=== PATIENT | male | born 1995 | race Caucasian/White ===

== ENCOUNTER 2020-03-27 20:05 | Emergency (ER) | payer SELFPAY ==
--- NOTE | ~2020-03-27 | US_ITS ---
US scrotum doppler INDICATION: Right testicular pain for 2 days TECHNIQUE: Testicular sonogram utilizing grayscale and color Doppler FINDINGS: The testes are normal in size and appearance. No focal lesions are seen. The right testes measures 4.8 x 3.5 x 2.9 cm centimeters, and the left testis measures 4.7 x 3.1 x 2.6 cm cm. There is normal vascular flow to both testes. The right epididymis is prominent, heterogeneous with increased vascularity. There is an 8 mm left ep ididymal cysts. Small hydroceles. IMPRESSION: 1. Asymmetrically enlarged heterogeneous right epididymis with increased vascularity, consistent wit h epididymitis. 2: Small hydroceles. Reviewed, dictated and finalized at location A. TRAVEL COUNSELOR IMPRESSION: 1. Asymmetrically enlarged heterogeneous right epididymis with increased vascu larity, consistent with epididymitis. 2: Small hydroceles.
--- NOTE | 2020-03-27 20:09 | ED.ABDPAIN ---
HPI - Abdominal Pain General Chief Complaint: Urogenital-Male Stated Complaint: right malik pain Time Seen by Provider: 03/27/20 20:09 Source: patient and family Mode of arrival: ambulatory Limitations: no limitations History of Present Illness HPI narrative: Patient is a 24-year-old male who presents for evaluation of right testicular pain. Pain has been present over the past 10 hours, worsening over the course of the day. Patient states he did awaken with the pain this morning. He reports pain that is dull, aching, worse with movement in his right testicle which radiates into his right groin. He reports some swollen lymph nodes in his right groin. He denies penile pain, discharge or history of sexually transmitted infection. He denies any painful urination, dribbling urination, hesitancy, frequency or hematuria. He denies any back pain. Patient is sexually active with one partner. He denies any fever, chest pain, cough or shortness of breath. Last oral intake was 3 hours prior to arrival. Related Data Allergies Allergy/AdvReac Type Severity Reaction Status Date / Time No Known Allergies Allergy Verified 04/21/18 07:26 Review of Systems Review of Systems: Narrative: CONSTITUTIONAL: Denies fever, chills, or sweats. EYES: Denies visual changes, redness, or discharge. ENT: Denies rhinorrhea, congestion, sore throat, or otalgia. CARDIOVASCULAR: Denies chest pain, palpitations, or edema. RESPIRATORY: Denies cough or dyspnea. GASTROINTESTINAL: Denies abdominal pain, nausea, vomiting, or diarrhea. GENITOURINARY: Denies dysuria or hematuria. Reports right testicular pain and swelling. SKIN: Denies rash or itching. MUSCULOSKELETAL: Denies back pain, joint pain, or myalgia. NEUROLOGIC: Denies headache, numbness, or weakness. [facility] Past Medical History Medical History (Updated 03/27/20 @ 21:25 by Ching Nichols MD) No pertinent past medical history Surgical History Surgical History (Updated 03/27/20 @ 20:20 by Ching Nichols MD) History of tonsillectomy Social History Social History Gender identity (if verbalized by the patient): Male Exam Narrative: Exam Narrative: GENERAL: Awake, alert, conversant, mildly uncomfortable appearing HEAD: Normocephalic, atraumatic. EYES: PERRLA and EOMI. ENT: Nares clear, no rhinorrhea or epistaxis. Mucous membranes moist. NECK: Supple. CHEST: No respiratory distress, breathing even and non labored HEART: Regular rate, sinus rhythm ABDOMEN:Non distended, non tender : Penis is circumcised. Glans unremarkable. No discharge or lesions. Left testes is unremarkable, nontender, no erythema. Patient does have right testicular erythema, edema and tenderness. He does have bilateral cremasteric reflex. There is right-sided inguinal lymphadenopathy, mobile lymph nodes which are tender to palpation. No inguinal lymphadenopathy on the left. No discharge from the urethra. EXTREMITIES: Normal range of motion. No edema. SKIN: Warm, dry, no rash. NEURO:No focal deficits. Alert and oriented x3 Course Vital Signs Vital signs: Vital Signs Temperature 36.4 C 03/27/20 20:11 Pulse Rate 82 03/27/20 20:11 Respiratory Rate 14 03/27/20 20:11 Blood Pressure 154/90 H 03/27/20 20:11 Pulse Oximetry 99 03/27/20 20:11 Temperature 36.4 C 03/27/20 20:11 Pulse Rate 82 03/27/20 20:11 Respiratory Rate 14 03/27/20 20:11 Blood Pressure 154/90 H 03/27/20 20:11 Pulse Oximetry 99 03/27/20 20:11 MDM - Abdominal Pain MDM Narrative Medical decision making narrative: Patient presented for evaluation of gradually worsening right testicular pain and swelling. The time of assessment, my clinical suspicion for testicular torsion is low given bilateral cremasteric reflex. There is right edema, erythema and tenderness of the right testicle with associated lymphadenopathy which seems more consistent with epididymitis. Laboratory results show mild leukocytosis. No electrolyte
[2020-03-27 20:11] VITALS: BP 154/90; PULSE 82; RESP 14; TEMP 36.4; O2SAT 99
[2020-03-27] MEDS: ONDANSETRON INJ 4 MG/2 ML VIAL IV PUSH (20:24)
[2020-03-27] MEDS: SODIUM CHLORIDE 0.9% IV 1,000 ML 999 ML IV CONT (20:24)
[2020-03-27] MEDS: MORPHINE SULFATE (*CRX) 4 MG/ML INJ IV PUSH (20:24)
[2020-03-27 21:11] LABS: Basophils Percent Auto 0.3 % (0.2-1.2); Eosinophils Absolute Auto 0.1 K/mm3 (0-0.3); Eosinophils Percent Auto 0.7 % (0-4.4); Hematocrit 41.3 % (42.0-52.0); Hemoglobin 14.6 g/dL (14.0-18.0); Immature Granulocyte Absolute 0.04 K/mm3 (0.00-0.031); Immature Granulocyte Percent A 0.4 % (0-0.5); Lymphocytes Absolute Auto 1.29 K/mm3 (0.9-3.2); Mean Corpuscular HGB Conc 35.4 g/dl (32-36); Mean Corpuscular Hemoglobin 30.8 pg (26-34); Mean Corpuscular Volume 87.1 fl (80-100); Mean Platelet Volume 10.2 fl (7.4-10.4); Monocytes Absolute Auto 0.8 K/mm3 (0.1-0.6); Monocytes Percent Auto 7.8 % (2.6-8.5); Neutrophils Absolute Auto 8.4 K/mm3 (1.3-6.7); Neutrophils Percent Auto 78.8 % (45.5-73.1); Platelet Count Result 255 k/mm3 (150-375); Red Blood Count 4.74 M/mm3 (4.6-6.20); White Blood Count 10.7 K/mm3 (4.5-10.0)
[2020-03-27 21:23] LABS: Alanine Aminotransferase 15 U/L (4-50); Albumin Level 4.6 g/dL (3.5-5.1); Alkaline Phosphatase 58 U/L (38-126); Anion Gap 7 mmol/L (8-16); Aspartate Amino Transferase 26 U/L (17-59); Bilirubin,Total 0.4 mg/dL (0.2-1.3); Blood Urea Nitrogen 16 mg/dL (9-20); Calcium 9.5 mg/dL (8.4-10.2); Carbon Dioxide 29 mmol/L (22-30); Chloride 101 mmol/L (98-107); Estimated CRCL calculation 75 ml/min; Estimated Glomerular Filt Rate > 60; Glucose 127 mg/dL (75-110); Potassium 3.5 mmol/L (3.4-5.0); Sodium 137 mmol/L (137-145)
[2020-03-27 21:27] LABS: Add Urine Microscopic? NO; Appearance Urine Clear (Clear); Bilirubin Urine Negative (Negative); Blood Urine Negative (Negative); Color Urine Straw (Yellow); Glucose Urine UA Negative (Negative); Ketones Urine Negative (Negative); Leukocyte Esterase Ur Negative LEU/UL (Negative); Nitrate Urine Negative (Negative); Protein Urine Negative (Negative); Urobilinogen Urine Negative mg/dL (<2.0); WBC Urine 0-3 /hpf
[2020-03-27] MEDS: cefTRIAXone 250 MG VIAL 500 MG IM (21:54)
[2020-03-27] MEDS: DOXYCYCLINE HYCLATE 100 MG TABLET PO (21:55)
[2020-03-27] MEDS: KETOROLAC 15 MG/ML VIAL (*BKC) IV PUSH (21:55)
[2020-03-27 22:10] VITALS: BP 137/68; PULSE 78; RESP 18; O2SAT 99
== END 2020-03-27 22:10 | disposition home or self-care (01) ==
PROVIDERS: Emergency Provider Emergency Medicine
DX: N45.1 Epididymitis (principal)
CPT/HCPCS: 36415; 76870; 80053; 81003; 85025; 87491; 87591; 93976; 96361; 96365; 96372; 96375; 99284; A9270; J0131; J0696; J1885; J2270; J2405; J7030

== ENCOUNTER 2020-04-26 14:59 | Emergency (ER) | payer SELFPAY ==
--- NOTE | ~2020-04-26 | XR_ITS ---
EXAMINATION: XR knee LT min 4V DATE: 04/26/2020 15:31 INDICATION: Left thigh foreign body. TECHNIQUE: 4 views of left knee were obtained. COMPARISON: None. FINDINGS: Bone alignment is normal. No fracture. Joint spaces are well maintained. There is no knee j oint effusion. There is a nail in the soft tissues of the medial distal thigh. IMPRESSION: 1. Nail in the soft tissues of the medial distal thigh. Reviewed, dictated and finalized at location B. NG DEPARTMENT HEAD
[2020-04-26] MEDS: diazePAM (*CRX) 5 MG TABLET PO (15:29)
[2020-04-26] MEDS: TETANUS,DIPHTHERIA,AC PERTUSSIS ADULT (0.5 ML) BOOSTRIX IM (15:30)
[2020-04-26 15:33] VITALS: BP 132/74; PULSE 70; RESP 16; TEMP 37.1; O2SAT 97
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
[2020-04-26 16:52] VITALS: BP 138/88; PULSE 79; RESP 16; O2SAT 100
== END 2020-04-26 16:53 | disposition home or self-care (01) ==
PROVIDERS: Emergency Provider Emergency Medicine
DX: S71.142A Puncture wound with foreign body, left thigh, initial encounter (principal); F17.200 Nicotine dependence, unspecified, uncomplicated; W29.4XXA Contact with nail gun, initial encounter; Z23 Encounter for immunization
CPT/HCPCS: 73564; 90471; 90715; 99283; A9270

== ENCOUNTER 2020-06-09 12:16 | Emergency (ER) | payer SELFPAY ==
--- NOTE | 2020-06-09 12:17 | ED.GENADULT ---
HPI - General Adult General Chief complaint: Dental/Oral Stated complaint: Dental Pain Time Seen by Provider: 06/09/20 12:17 Source: patient Mode of arrival: ambulatory Limitations: no limitations History of Present Illness HPI narrative: 25-year-old male patient presents to the [facility] with complaints of right lower dental pain x2 days patient states he woke up this morning and the pain is worse and now having swelling to the left lower jaw area. Patient states he has had dental abscesses before in the past. Patient states he has been taking Tylenol for pain. Denies any fevers, body aches or chills. Related Data Allergies Allergy/AdvReac Type Severity Reaction Status Date / Time doxycycline AdvReac Nausea and Verified 06/09/20 12:52 Vomiting Review of Systems Review of Systems: Narrative: CONSTITUTIONAL: Denies fever, chills, or sweats. EYES: Denies visual changes, redness, or discharge. ENT: Denies rhinorrhea, congestion, sore throat, or otalgia. Positive dental pain to right lower gum x2 days CARDIOVASCULAR: Denies chest pain, palpitations, or edema. RESPIRATORY: Denies cough or dyspnea. GASTROINTESTINAL: Denies abdominal pain, nausea, vomiting, or diarrhea. GENITOURINARY: Denies dysuria or hematuria. SKIN: Denies rash or itching. MUSCULOSKELETAL: Denies back pain, joint pain, or myalgia. NEUROLOGIC: Denies headache, numbness, or weakness. PSYCHIATRIC: Denies anxiety or depression. PMFSH Past Medical History Medical History (Updated 06/09/20 @ 13:03 by ANISA Slater) Abscessed tooth ADHD Eustachian tube dysfunction Ear tubes No pertinent past medical history Surgical History Surgical History (Updated 06/09/20 @ 12:19 by ANISA Slater) History of orthopedic surgery CHIN History of tonsillectomy Social History Social History Smoking status: Current every day smoker Gender identity (if verbalized by the patient): Male Comments At the time of my signature I agree with nursing past medical history, surgical, social, and family history. There is no relevant family history pertinent to the presenting complaint. Exam Narrative: Exam Narrative: GENERAL: Well-appearing, well-nourished, and in no acute distress. HEAD: Normocephalic, atraumatic. EYES: PERRLA and EOMI. ENT: Nares clear, no rhinorrhea or epistaxis. Mucous membranes moist. Patient has an obvious abscess noted to the right lower oral cavity along the gumline of the back molars. There is surrounding erythema but no active discharge at this time. NECK: Supple. No lymphadenopathy CHEST: Clear to auscultation. No respiratory distress. HEART: Regular rate and rhythm. No murmur heard. Normal peripheral pulses. ABDOMEN: Soft, nontender, nondistended, normal active bowel sounds. EXTREMITIES: Normal range of motion. No edema. SKIN: Warm, dry, no rash. NEURO: No focal deficits. Alert and oriented x3. Course Reevaluation(s) Reevaluation #1: Discussed with patient that there was some pus currently expressed from the abscess. Discussed with patient that he needs to keep the area clean with warm salt water gargles and I will discharge him home with an antibiotic. Discussed with him he can continue taking Tylenol and ibuprofen as needed for pain. Patient verbalized understanding denies any other questions or concerns at this time. Date: 06/09/20 Time: 13:07 Vital Signs Vital signs: Vital Signs Temperature 36.4 C L 06/09/20 12:30 Pulse Rate 86 06/09/20 12:30 Respiratory Rate 18 06/09/20 12:30 Blood Pressure 140/81 06/09/20 12:30 Pulse Oximetry 100 06/09/20 12:30 Temperature 36.4 C L 06/09/20 12:30 Pulse Rate 86 06/09/20 12:30 Respiratory Rate 18 06/09/20 12:30 Blood Pressure 140/81 06/09/20 12:30 Pulse Oximetry 100 06/09/20 12:30 Vital signs reviewed The patient has been informed that they may have pre-hypertension or Hypertension based o
[2020-06-09 12:30] VITALS: BP 140/81; PULSE 86; RESP 18; TEMP 36.4; O2SAT 100
== END 2020-06-09 13:08 | disposition home or self-care (01) ==
PROVIDERS: Emergency Provider Nurse Practitioner Family
DX: K04.7 Periapical abscess without sinus (principal); F17.200 Nicotine dependence, unspecified, uncomplicated
CPT/HCPCS: 41800; 99213; G0463

== ENCOUNTER 2020-11-10 14:07 | Emergency (ER) | payer SELFPAY ==
[2020-11-10 14:09] VITALS: BP 143/82; PULSE 101; RESP 18; TEMP 38.6; O2SAT 100
[2020-11-10 14:46] VITALS: BP 138/97; PULSE 97; RESP 18; TEMP 38.4; O2SAT 97
[2020-11-10 15:20] LABS: Monoscreen Negative (Negative); Negative Monotest Control Negative (Negative); Positive Monotest Control Positive (Positive)
--- NOTE | 2020-11-10 15:29 | ED.URI ---
HPI - URI/Sore Throat General Chief Complaint: Allergic Reaction Stated Complaint: ALLERGIC REACTION POST YELLOW JACKET BITE Time Seen by Provider: 11/10/20 14:24 Source: patient Mode of arrival: ambulatory Limitations: no limitations History of Present Illness HPI Narrative: 25-year-old male Basically healthy Fever and sore throat for 2 days Coincidentally 3 days ago got stung by a yellow jacket on his porch when he let his dog out to go to the bathroom but all that local reaction is resolved No cough or other symptoms Related Data Home Medications Medication Instructions Recorded Confirmed No Home Medications 11/10/20 11/10/20 Allergies Allergy/AdvReac Type Severity Reaction Status Date / Time doxycycline AdvReac Nausea and Verified 11/10/20 14:08 Vomiting Review of Systems Review of Systems: All systems reviewed & are unremarkable except as noted in HPI and below Constitutional: Constitutional: Reports no additional constitutional complaints, Denies chills, Reports fever(s) and Denies headache(s) Eyes: Eyes: Reports no additional eye complaints and Denies change in vision ENT: Reports dysphagia, Denies headache(s) and Reports sore throat Cardiovascular: Cardiovascular: Denies chest pain and Denies dyspnea Respiratory: Respiratory: Denies cough and Denies dyspnea Gastrointestinal: Gastrointestinal: Reports nausea Musculoskeletal: Musculoskeletal: Denies deformity and Denies numbness Integumentary/Breasts: Skin/Breast: Denies wounds Psychiatric: Psychiatric: Reports no additional psychiatric complaints Endocrine: Endocrine: Reports no additional endocrine complaints Hematologic/Lymphatic: Hematologic/Lymphatic: Reports no additional hematologic/lymphatic complaints Allergic/Immunologic: Allergic/Immunologic: Reports no additional allergic/immunologic complaints [facility] Past Medical History Medical History (Updated 11/10/20 @ 15:33 by Vipul Dockery MD) Abscessed tooth ADHD Eustachian tube dysfunction Ear tubes No pertinent past medical history Surgical History Surgical History (Updated 06/09/20 @ 12:19 by ANISA Slater) History of orthopedic surgery CHIN History of tonsillectomy Social History Social History Smoking status: Current every day smoker Gender identity (if verbalized by the patient): Male Exam Const: General: cooperative, healthy appearing, no acute distress and alert Orientation/consciousness: patient oriented x3 (alert) HENMT: Head: normal to inspection, normocephalic and atraumatic Ears: external ears normal Mouth: Yes Abnormal oral and palatal mucosa present erythematous; no white patches and no vesicles Eyes: Conjunctivae: conjunctivae normal Pupils: Equal, round and reactive pupils present EOM: EOMs intact bilaterally Neck: Neck: normal visual inspection, supple, lymphadenopathy (Tender anterior cervical nodes) and no JVD Resp: Effort & Inspection: normal respiratory effort and not labored Auscultation: clear to auscultation bilaterally, no rales, no rhonchi, no wheezes and other (BS =) Cardio: Rate: regular rate Rhythm: regular rhythm Heart sounds: no murmurs Skin: General skin exam: normal color and no rashes or lesions noted Neuro: General: patient oriented x3 (alert) and moves all extremities Speech: normal speech Extrem: General: normal to inspection Psych: Affect: normal affect Course Vital Signs Vital signs: Vital Signs Temperature 38.6 C H 11/10/20 14:09 Pulse Rate 101 H 11/10/20 14:09 Respiratory Rate 18 11/10/20 14:09 Blood Pressure 143/82 H 11/10/20 14:09 Pulse Oximetry 100 11/10/20 14:09 Temperature 38.4 C H 11/10/20 14:46 Pulse Rate 97 11/10/20 14:46 Respiratory Rate 18 11/10/20 14:46 Blood Pressure 138/97 H 11/10/20 14:46 Pulse Oximetry 97 11/10/20 14:46 MDM - URI/Sore Throat Lab Data Labs: Lab Results
[2020-11-10 17:40] VITALS: BP 139/72; PULSE 72; RESP 18; O2SAT 100
== END 2020-11-10 17:42 | disposition home or self-care (01) ==
PROVIDERS: Emergency Provider Emergency Medicine
DX: J02.9 Acute pharyngitis, unspecified (principal); F17.200 Nicotine dependence, unspecified, uncomplicated
CPT/HCPCS: 36415; 86308; 87081; 87880; 99283

== ENCOUNTER 2021-04-11 10:46 | Emergency (ER) | payer SELFPAY ==
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
[2021-04-11 11:03] VITALS: BP 163/68; PULSE 115; RESP 20; TEMP 36.7; O2SAT 99
[2021-04-11] MEDS: TETANUS,DIPHTHERIA,AC PERTUSSIS ADULT (0.5 ML) BOOSTRIX IM (11:35)
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
[2021-04-11] MEDS: IBUPROFEN 400 MG TABLET PO (11:36)
== END 2021-04-11 12:17 | disposition home or self-care (01) ==
PROVIDERS: Emergency Provider General Practice
DX: S02.2XXA Fracture of nasal bones, initial encounter for closed fracture (principal); Z23 Encounter for immunization; F17.200 Nicotine dependence, unspecified, uncomplicated; Y04.2XXA Assault by strike against or bumped into by another person, initial encounter
CPT/HCPCS: 70160; 90471; 90715; 99283; A9270

== ENCOUNTER 2021-04-24 11:11 | Emergency (ER) | payer SELFPAY ==
[2021-04-24 11:15] VITALS: BP 125/88; PULSE 108; RESP 18; TEMP 36.8; O2SAT 98
--- NOTE | 2021-04-24 11:36 | ED.GENADULT ---
HPI - General Adult General Chief complaint: Eye Problems Stated complaint: red eye Time Seen by Provider: 04/24/21 11:15 Source: patient and RN notes reviewed Mode of arrival: ambulatory Limitations: no limitations History of Present Illness HPI narrative: 25 yo male with left eye irritation that began today patient notes that he woke with the irritation with conjunctival injection and matting denies injury or trauma or URI symptoms or any visual changes presents nondistressed does not take anything for his symptoms. Related Data Allergies Allergy/AdvReac Type Severity Reaction Status Date / Time doxycycline AdvReac Nausea and Verified 04/11/21 11:31 Vomiting Review of Systems Review of Systems: CONSTITUTIONAL: Denies fever, chills EYES: Denies visual changes ENT: Denies rhinorrhea, congestion CARDIOVASCULAR: Denies chest pain RESPIRATORY: Denies cough or dyspnea. SKIN: Denies rash or itching. MUSCULOSKELETAL: Denies joint pain, or myalgia. NEUROLOGIC: Denies headache, dizziness, or weakness. PMFSH Past Medical History Medical History Abscessed tooth ADHD Eustachian tube dysfunction Ear tubes No pertinent past medical history Surgical History Surgical History History of orthopedic surgery CHIN History of tonsillectomy Social History Social History Smoking status: Current every day smoker Gender identity (if verbalized by the patient): Male Exam Narrative: GENERAL: Well-appearing, well-nourished, and in no acute distress. HEAD: Normocephalic, atraumatic. EYES: PERRLA and EOMI. right eye with conjunctival injection no foreign bodies ENT: Nares clear, no rhinorrhea or epistaxis. Mucous membranes moist. EXTREMITIES: Normal range of motion. No edema. SKIN: Warm, dry, no rash. NEURO: No focal deficits. Alert and oriented x3. Cranial nerves II through XII grossly intact PSYCH: Normal mood and affect. Course Course Emergency Course: Patient symptoms most consistent with conjunctivitis will be discharged with outpatient follow-up with ophthalmology given indications for return he is afebrile nontoxic-appearing nondistressed. Patient felt appropriate for outpatient reevaluation given indications for return Vital Signs Vital signs: Vital Signs Temperature 98.2 F 01/19/22 11:15 Pulse Rate 108 H 04/24/21 11:15 Respiratory Rate 18 04/24/21 11:15 Blood Pressure 125/88 04/24/21 11:15 Pulse Oximetry 98 04/24/21 11:15 Temperature 98.2 F 04/24/21 11:15 Pulse Rate 108 H 04/24/21 11:15 Respiratory Rate 18 04/24/21 11:15 Blood Pressure 125/88 04/24/21 11:15 Pulse Oximetry 98 04/24/21 11:15 Medical Decision Making MDM Narrative Medical decision making narrative: Patient in the room nondistressed aware of case findings treatment plan and diagnosis agreeing to follow-up as instructed with ophthalmology and primary care and given indications for return Vital Signs Vital Signs: Vital Signs Temperature 98.2 F 04/24/21 11:15 Pulse Rate 108 H 04/24/21 11:15 Respiratory Rate 18 04/24/21 11:15 Blood Pressure 125/88 04/24/21 11:15 Pulse Oximetry 98 04/24/21 11:15 Temperature 98.2 F 04/24/21 11:15 Pulse Rate 108 H 04/24/21 11:15 Respiratory Rate 18 04/24/21 11:15 Blood Pressure 125/88 04/24/21 11:15 Pulse Oximetry 98 04/24/21 11:15 Discharge Plan Discharge Clinical Impression: Conjunctivitis Patient Disposition: Home, Self-Care Condition: Stable Instructions: Antibiotic Form, Conjunctivitis (ED) Additional Instructions: Follow-up with ophthalmology and primary care in the next 2 days to set up for reevaluation Use preservative-free tears every 2 hours for symptom relief Only take medications as directed Follow patient education sheet Return if symptoms wors
== END 2021-04-24 12:19 | disposition home or self-care (01) ==
PROVIDERS: Emergency Provider Emergency Medicine
DX: H10.9 Unspecified conjunctivitis (principal); F90.9 Attention-deficit hyperactivity disorder, unspecified type
CPT/HCPCS: 99283

== ENCOUNTER 2022-04-28 16:31 | Emergency (ER) | payer SELFPAY ==
--- NOTE | ~2022-04-28 | XR_ITS ---
EXAMINATION: XR chest 2V Exam Date/Time: 04/28/2022 16:50 PHYSICAL MEDICINE PHYSICIAN HISTORY: SOB Comparison: 12/25/2014. RESULT: Lines, tubes, and devices: None. Lungs and pleura: Clear. Cardiomediastinal silhouette: Stable. Other: No acute osseous or upper abdominal finding. IMPRESSION: No acute cardiopulmonary process. Reviewed, dictated and finalized at location [facility]. [facility] MEDICINE PHYSICIAN
[2022-04-28 16:42] VITALS: BP 173/79; PULSE 117; RESP 18; TEMP 36.4; O2SAT 99
--- NOTE | 2022-04-28 20:56 | PC.NURSE ---
Pt came to intake desk stating that he talked to my boss and they just want me to come back in the morning. Pt A&Ox4, reps even non-labored. Pt is ambulatory with steady gait out of ED lobby at this time.
== END 2022-04-28 21:50 | disposition left against medical advice (07) ==
PROVIDERS: Emergency Provider Preventive Medicine Aerospace Medicine
DX: R06.9 Unspecified abnormalities of breathing (principal)
CPT/HCPCS: 71046; 99199

== ENCOUNTER 2022-08-22 14:48 | Emergency (ER) | payer SELFPAY ==
[2022-08-22 14:57] VITALS: BP 151/92; PULSE 104; RESP 18; TEMP 37; O2SAT 99
--- NOTE | 2022-08-22 15:20 | ED.DENTAL ---
HPI - Dental/Oral General Chief complaint: Dental/Oral Stated complaint: Facial Swelling/Vomiting Time Seen by Provider: 08/22/22 15:21 Source: patient, RN notes reviewed and old records reviewed Mode of arrival: ambulatory Limitations: no limitations History of Present Illness HPI Narrative: 27-year-old male presents to the [facility] with complaints of dental pain and swelling right lower jaw. States it has been like that for 4 days. Has not seen a dentist. Has taken Tylenol for pain. Related Data Allergies Allergy/AdvReac Type Severity Reaction Status Date / Time doxycycline AdvReac Nausea and Verified 08/22/22 15:00 Vomiting Review of Systems Review of Systems: All systems reviewed & are unremarkable except as noted in HPI and below Constitutional: Constitutional: Reports no additional constitutional complaints Eyes: Eyes: Reports no additional eye complaints ENT: Reports as per HPI and Reports dental pain Cardiovascular: Cardiovascular: Reports no additional cardiovascular complaints, Denies chest pain and Denies dyspnea Respiratory: Respiratory: Reports no additional respiratory complaints, Denies chest congestion, Denies cough and Denies dyspnea Gastrointestinal: Gastrointestinal: Reports no additional gastrointestinal complaints, Denies abdominal pain, Denies nausea and Denies vomiting Musculoskeletal: Musculoskeletal: Reports no additional musculoskeletal complaints Integumentary/Breasts: Skin/Breast: Reports system reviewed and no additional complaints, except as docu Neurologic: Reports system reviewed and no additional complaints, except as documented Psychiatric: Psychiatric: Reports no additional psychiatric complaints Allergic/Immunologic: Allergic/Immunologic: Reports no additional allergic/immunologic complaints PMFSH Past Medical History Medical History Abscessed tooth ADHD Eustachian tube dysfunction Ear tubes No pertinent past medical history Surgical History Surgical History History of orthopedic surgery CHIN History of tonsillectomy Social History Social History Smoking status: Current every day smoker Gender identity (if verbalized by the patient): Male Comments At the time of my signature, I reviewed and agree with the nursing past medical, surgical, social, and family history. There is no relevant family history pertinent to the patient complaint. Exam Const: General: cooperative, healthy appearing, comfortable, no acute distress, well developed, alert and well nourished Nutritional Appearance: well nourished Orientation/consciousness: patient oriented x3 Limitations: no limitations HENMT: Head: normal to inspection Ears: hearing grossly normal bilaterally and external ears normal Face/Nose/Sinus: Normal external nose present, Normal nares present, Normal nasal mucous membranes and turbinates present and normal facial exam Face and sinus: normal facial exam Mouth: Yes Normal oral and palatal mucosa present, Yes lip normal and Yes moist mucous membranes Teeth and gingiva: abnormal tooth and associated gingiva (Right lower), caries and poor dentition Throat: posterior oropharynx normal and uvula midline Other: Swelling noted to the right lower jaw, no erythema or lymphadenopathy noted. No cellulitic changes. Eyes: General: appearance normal, both eyes and all related structures Alignment and Position: alignment normal Periorbital: periorbital findings normal Pupils: Equal, round and reactive pupils present EOM: EOMs intact bilaterally Neck: Neck: normal visual inspection, full ROM, no lymphadenopathy and no meningeal signs Chest: Chest palpation & inspection: normal inspection of the chest Resp: Effort & Inspection: normal respiratory effort and able to speak in complete sentences Auscultat
== END 2022-08-22 15:29 | disposition home or self-care (01) ==
PROVIDERS: Emergency Provider Nurse Practitioner
DX: K04.7 Periapical abscess without sinus (principal); F17.200 Nicotine dependence, unspecified, uncomplicated
CPT/HCPCS: 99213; G0463

== ENCOUNTER 2023-05-16 12:55 | Emergency (ER) | payer BC, SELFPAY ==
[2023-05-16 13:14] VITALS: BP 152/122; PULSE 135; RESP 20; TEMP 39.2; O2SAT 98
[2023-05-16 14:38] LABS: Influenza A QL RT-PCR Negative (Negative); Influenza B QL RT-PCR Negative (Negative); RSV RNA, RT-PCR Negative (Negative); SARS-CoV-2 RNA PCR Negative (Negative)
[2023-05-16 15:24] VITALS: BP 157/80; PULSE 110; RESP 20; TEMP 36.9; O2SAT 97
[2023-05-16 16:04] VITALS: BP 164/89; PULSE 104; RESP 20; O2SAT 98
[2023-05-16 16:28] LABS: Strep Group A RT-PCR DETECTED (Negative)
[2023-05-16 16:42] VITALS: BP 144/89; PULSE 104; RESP 20; O2SAT 100
--- NOTE | 2023-05-16 17:23 | ED.URI ---
HPI - URI/Sore Throat General Chief Complaint: Upper Respiratory Infection Stated Complaint: dizzy/st/fever Time Seen by Provider: 05/16/23 16:34 Source: patient Mode of arrival: ambulatory Limitations: no limitations History of Present Illness HPI Narrative: This is a 27-year-old male that presents to the emergency department for sore throat present since last night. Associated with fevers. Denies cough, congestion, or rhinorrhea. Related Data Allergies Allergy/AdvReac Type Severity Reaction Status Date / Time doxycycline AdvReac Nausea and Verified 05/16/23 16:42 Vomiting Review of Systems Review of Systems: CONSTITUTIONAL: Reports fever ENT: Reports sore throat RESPIRATORY: Denies dyspnea. All systems reviewed & are unremarkable except as noted in HPI and below PMFSH Past Medical History Medical History Abscessed tooth ADHD Eustachian tube dysfunction Ear tubes No pertinent past medical history Surgical History Surgical History History of orthopedic surgery CHIN History of tonsillectomy Social History Social History Smoking status: Current every day smoker Gender identity (if verbalized by the patient): Male Exam Narrative: GENERAL: Well-appearing, well-nourished, and in no acute distress. HEAD: Normocephalic, atraumatic. EYES: PERRLA and EOMI. ENT: Nares clear, no rhinorrhea or epistaxis. Mucous membranes moist. Oropharynx with erythema and tonsillar hypertrophy with exudate, no other lesions. Uvula midline. No trismus. Bilateral TMs pearly mcdowell non-bulging NECK: Supple. Tender anterior cervical adenopathy CHEST: Clear to auscultation. No respiratory distress. No wheezes rales or rhonchi HEART: Regular rate and rhythm. No murmur heard. Normal peripheral pulses. EXTREMITIES: Normal range of motion. No edema. SKIN: Warm, dry, no rash. NEURO: No focal deficits. Alert and oriented x3. Normal gait PSYCH: Normal mood and affect Course Course Emergency Course: Patient updated on workup and agrees with plan of care. Offered further treatment with IV fluids and steroid. He declines at this time. Would like to be discharged Vital Signs Vital signs: Vital Signs Temperature 102.6 F H 05/16/23 13:14 Pulse Rate 135 H 05/16/23 13:14 Respiratory Rate 20 05/16/23 13:14 Blood Pressure 152/122 H 05/16/23 13:14 Pulse Oximetry 98 05/16/23 13:14 Oxygen Delivery Room Air 05/16/23 13:14 Temperature 98.4 F 05/16/23 15:24 Pulse Rate 104 H 05/16/23 16:42 Respiratory Rate 20 05/16/23 16:42 Blood Pressure 144/89 H 05/16/23 16:42 Pulse Oximetry 100 05/16/23 16:42 Oxygen Delivery Room Air 05/16/23 13:14 MDM - URI/Sore Throat MDM Narrative Medical decision making narrative: Patient presents to the emergency department for sore throat present since last night. Patient febrile and tachycardiac upon arrival. Given dose of ibuprofen in the ED. Influenza, RSV and COVID screens are negative. Patient is positive for strep. Uvula is midline. No trismus. Will be started on oral antibiotics. He is to follow up with primary provider. He was given warnings to return to the ER Differential Diagnosis Differential diagnosis: Likely upper respiratory infection, viral infection, influenza, pharyngitis and other (strep) Lab Data Attestation: I reviewed the patient's lab results. Labs: Lab Results 05/16/23 05/16/23 Range/Units 13:38 15:58 Influenza A (RT-PCR) Negative (Negative) Influenza B (RT-PCR) Negative (Negative) RSV (RT-PCR) Negative (Negative) SARS-CoV-2 RNA (RT-PCR) Negative (Negative) Group A Strep (PCR) Detected A (Negative) Critical Care Time Critical Care Time Critical Care Time: No Discharge Plan Discharge Clinical Impression: Acute streptococcal
[2023-05-16] MEDS: PENICILLIN V POTASSIUM 250 MG TABLET 500 MG PO (17:31)
[2023-05-16] MEDS: IBUPROFEN 600 MG TABLET PO (17:31)
== END 2023-05-16 17:37 | disposition home or self-care (01) ==
PROVIDERS: Emergency Medicine; Emergency Provider Physician Assistant
DX: J02.0 Streptococcal pharyngitis (principal); F17.200 Nicotine dependence, unspecified, uncomplicated; Z20.822 Contact with and (suspected) exposure to COVID-19
CPT/HCPCS: 87637; 87651; 99283; A9270